=== PATIENT | female | born 1990 | race African-American/Black ===

== ENCOUNTER 2022-12-14 19:31 | Emergency (ER) | payer OTHER, SELFPAY ==
[2022-12-14 19:53] VITALS: BP 122/76; PULSE 91; RESP 16; TEMP 36.3; O2SAT 99; BMI 29.0
--- NOTE | 2022-12-14 19:59 | DI.US.S_ITS ---
PROCEDURE: US PELVIC COMPLETE INDICATIONS: PAIN; LOST IUD STRINGS TECHNIQUE: Real-time scanning was performed of the pelvic organs, with image documentation. Additional endovaginal scanning was necessary due to incomplete visualization of the adnexal and endometrial structures by transabdominal scanning. COMPARISON: None. FINDINGS: Uterus: Uterus is anteverted and measures 10.6 x 4.8 x 7.1 cm. The endometrium measures up to 0.4 cm in thickness. An IUD extends into the fundal endometrium. There is a mid posterior intramural fibroid measuring 1.5 x 1.2 x 1.6 cm. Ovaries: The right ovary measures 4.7 x 2.3 x 3.5 cm, with a calculated ovarian volume of 20 cc. The left ovary measures 2.2 x 3.7 x 1.7 cm, with a calculated ovarian volume of 7.2 cc. Less than 12 follicles can be seen in each ovary. No adnexal masses . There is an anechoic cyst within the right ovary measuring up to 2.3 cm. Other: No pathologic free abdominal or pelvic fluid. IMPRESSION: 1. IUD demonstrated in appropriate position extending into the fundal endometrium. 2. Small intramural fibroid demonstrated. We strive to produce accurate, complete, and clear reports of imaging services. To assist us in improving patient care, this report was composed using standard report templates and voice recognition software. Therefore, it may contain abnormal punctuation, insertions and/or omissions. Occasional wrong-word or sound-alike substitutions may occur. Though we review the report and make efforts to correct it, we do recommend that the report be read carefully in proper context to recognize any text inaccuracies. Dictated by: Ruslan Warner M.D. on 12/14/2022 at 21:50 Approved by: Ruslan Warner M.D. on 12/14/2022 at 21:53
--- NOTE | 2022-12-14 22:20 | ED.GENADULT ---
HPI - General Adult General Chief complaint: Urogenital-Female Stated complaint: Trying to get something removed? Time Seen by Provider: 12/14/22 20:32 Source: patient Mode of arrival: Ambulatory History of Present Illness HPI narrative: Patient is a 32-year-old female who 2 years ago had an IUD placed. Still has menstrual cycles. Her last menstrual cycle was just a couple weeks ago. She has had lower abdominal discomfort for the past couple days. She denies any urinary symptoms. No vaginal bleeding. States she could not feel the IUD strings. No vomiting. No chest pain. No shortness of breath. No fevers. Related Data Home Medications Medication Instructions Recorded Confirmed Zoloft 100 mg PO DAILY 12/14/22 12/14/22 Allergies Allergy/AdvReac Type Severity Reaction Status Date / Time adhesive Allergy Verified 12/14/22 19:52 Review of Systems Cardiovascular Cardiovascular: Reports system reviewed and no additional complaints, except as documented Respiratory Respiratory: Reports system reviewed and no additional complaints, except as documented Gastrointestinal Gastrointestinal: Reports system reviewed and no additional complaints, except as documented Genitourinary Genitourinary: Reports system reviewed and no additional complaints, except as documented Neurologic Neurologic: Reports system reviewed and no additional complaints, except as documented Hematologic/Lymphatic On Anticoagulants: No Patient History Social History Smoking Status: Never smoker Smoking Status: Never smoker alcohol intake frequency: a few times a week Substance Use Type: does not use Exam Initial Vital Signs Initial Vital Signs: Vital Signs Temperature 97.4 F L 12/14/22 19:53 Pulse Rate 91 H 12/14/22 19:53 Respiratory Rate 16 12/14/22 19:53 Blood Pressure 122/76 12/14/22 19:53 Pulse Oximetry 99 12/14/22 19:53 Oxygen Delivery Method Room Air 12/14/22 19:53 HENMT Head: normal to inspection and normocephalic Resp Effort & Inspection: normal respiratory effort Cardio Rate: regular rate GI Palpation: No firm and tender (Mildly tender lower abdomen) Neuro General: patient alert, patient awake and moves all extremities Course Orders Ordered: ED Orders 12/14/22 19:59 US pelvic complete Stat 12/14/22 22:27 CT abdomen pelvis w con Stat 12/14/22 22:45 Complete Blood Count AUTO DIFF Stat Comprehensive Metabolic Panel Stat Lipase Stat Test Serum,Qual Stat Vital Signs Vital signs: Vital Signs - 8 hr 12/14/22 19:53 12/14/22 22:49 Temperature 97.4 F L Pulse Rate 91 H 71 Respiratory Rate 16 16 Blood Pressure 122/76 137/82 Pulse Oximetry 99 100 Oxygen Delivery Method Room Air Room Air Medical Decision Making Lab Data Lab results reviewed: Yes I reviewed the patient's lab results. 12/14/22 22:45 12/14/22 22:45 Labs: Lab Results 12/14/22 12/14/22 12/14/22 Range/Units 22:45 22:45 22:45 WBC 5.3 (4.5-11.0) X10^3/uL RBC 4.62 (4.0-5.2) X10^6/uL Hgb 12.7 (12.0-16.0) g/dL Hct 36.8 (36-46) % MCV 79.6 L (80-100) fL MCH 27.5 (26-34) PG MCHC 34.6 (30-36) % RDW 13.1 (11.6-14.8) % Plt Count 292 (150-400) X10^3/uL Neut % (Auto) 43.7 L (50-75) % Lymph % (Auto) 40.5 H (25-40) % Barry % (Auto) 10.2 (3-14) % Eos % (Auto) 4.3 H (2-4) % Baso % (Auto) 1.3 (0-2) % Neut # (Auto) 2300 (8074-4703) /uL Lymph # (Auto) 2100 (1638-3309) /uL Barry # (Auto) 500 (0-900) /uL Eos # (Auto) 200 (0-450) /uL Baso # (Auto) 100 (0-100) /uL Sodium 137 (137-145) mmol/L Potassium 4.0 (3.4-5.1) mmol/L Chloride 102 (98-107) mmol/L Carbon Dioxide 29 (22-32) mmol/L BUN 14 (7-17) mg/dL Creatinine 0.90 (0.52-1.04) mg/dL Estimated GFR > 60 (>60) mL/min BUN/Creatinine Ratio 15.6 (6-22) Glucose 115 H (70-100) mg/dL Calcium 8.8 (8.4-10.2) mg/dL Total Bilirubin 0.4 (0.2-1.3) mg/dL AST 21 (14-36) IU/L ALT 21 (<35) IU/L Alkaline Phosphatase 60 (38-126) U/L Total Protein 7.8 (6.3-8.2) g/dL Albumin 4.1 (3.5-5.0) g/dL Globulin 3.7 (1.7-4.1) g/dL Albumin/Globulin Ratio 1.1 (1.0-2.8) Lipase 150 (23-300) U/L Serum , Qual Negative (Negative) Point of Care Testing Test Results Negative Urine Dip Bedside Urine Glucose Negative Bedside Urine Bilirubin - Negative Bedside Urine Ketone - Negative Urine Specific [place] 1.015 Bedside Urine Occult Blood - Negative Bedside Urine pH 6.5 Bedside Urine Protein - Negative Bedside Urine Urobilinogen - Negative Bedside Urine Nitrite - Negative Bedside Urine Leukocytes - Negative Esterase Point of care testing: Point of Care Testing Test Results Negative Urine Dip Bedside Urine Glucose Negative Bedside Urine Bilirubin - Negative Bedside Urine Ketone - Negative Urine Specific [place] 1.015 Bedside Urine Occult Blood - Negative Bedside Urine pH 6.5 Bedside Urine Protein - Negative Bedside Urine Urobilinogen - Negative Bedside Urine Nitrite - Negative Bedside Urine Leukocytes - Negative Esterase Imaging Data US - DISPATCHER CLERK: Radiologist's Impression: PROCEDURE:? US PELVIC COMPLETE ? INDICATIONS:? PAIN; LOST IUD STRINGS ? TECHNIQUE:? Real-time scanning was performed of the pelvic organs, with image documentation.? Additional endovaginal scanning was necessary due to incomplete visualization of the adnexal and endometrial structures by transabdominal scanning.? ? COMPARISON:? None. ? FINDINGS:? ?? Uterus:? Uterus is anteverted and measures 10.6 x 4.8 x 7.1 cm.? The endometrium measures up to 0.4 cm in thickness.? An IUD extends into the fundal endometrium.? There is a mid posterior intramural fibroid measuring 1.5 x 1.2 x 1.6 cm. ? Ovaries:? The right ovary measures 4.7 x 2.3 x 3.5 cm, with a calculated ovarian volume of 20 cc. The left ovary measures 2.2 x 3.7 x 1.7 cm, with a calculated ovarian volume of 7.2 cc. Less than 12 follicles can be seen in each ovary.? No adnexal masses .? There is an anechoic cyst within the right ovary measuring up to 2.3 cm. ? Other:? No pathologic free abdominal or pelvic fluid. ? ? IMPRESSION:? ? 1. IUD demonstrated in appropriate position extending into the fundal endometrium.? ? 2. Small intramural fibroid demonstrated. CT scan - abdomen/pelvis: Radiologist's Impression: PROCEDURE:? CT ABDOMEN PELVIS W CON ? INDICATIONS:? Bilateral lower abdominal pain ? TECHNIQUE:? After the administration of IV contrast, axial sections were acquired from the lung bases to the pubic symphysis.? Coronal and sagittal reformats were performed.? For radiation dose reduction, the following was used:? automated exposure control, adjustment of mA and/or kV according to patient size. ? COMPARISON:? [facility], , PELVIC COMPLETE, 12/14/2022, 20:44. ? FINDINGS:? Image quality:? Excellent.? ? Lung bases:? Unremarkable.? ? Heart:? Heart is normal in size. ? ? ABDOMEN: Liver:? No mass lesion. Gallbladder:? Within normal limits without calcified gallstones.? ? Biliary ducts:? No biliary ductal dilatation.? ? Pancreas:? Unremarkable.? ? Spleen:? Normal in size.? ? Adrenal Glands:? No adrenal nodules.? ? Kidneys and Ureters:? No hydronephrosis.? ? ? Stomach and Bowel:? Stomach, small bowel loops, and colon are normal in caliber and wall thickness.? The appendix is at the upper limits of normal, measuring up to 0.7 cm.? No definite associated periappendiceal fat stranding or fluid. Peritoneum:? A small amount of free fluid in the pelvis appears within physiologic limits.? No free air.? ? Ventral Wall: ? No hernia.? Abdominal Nodes:? No retroperitoneal or mesenteric adenopathy by size criteria.? Vessels:? Aorta and inferior vena cava are normal in size.? ? PELVIS: Pelvic Organs:? An IUD appears to extend into the fundal endometrium the.? ? Bladder:? Unremarkable.? ? Pelvic Nodes: No enlarged lymph nodes.? Miscellaneous: No inguinal hernias are seen. ? ? ? Bones:? Visualized osseous structures demonstrate no suspicious focal lesions. ? IMPRESSION:? ? 1. No definite evidence of appendicitis. ? 2. Small amount of pelvic free fluid appears within physiologic limit MDM Narrative Medical decision making narrative: Has a benign exam. Ultrasound does show the IUD in place. Initially recommended to the patient that we hold on any CT scan for now as I had low suspicion for other acute intra-abdominal surgical issues however the patient stated that she wanted to make sure that there was nothing wrong so she asked for CT scan. The subsequent CT scan is unremarkable. No fevers. No further workup required here in the emergency department. Patient understands the lack of definitive diagnosis here in the ER. She was given return precautions. She expressed understanding and agreement. Discharge Plan Departure Patient Disposition: Home Clinical Impression: Abdominal pain Instructions: DI for Abdominal Pain-Adult Activity Restrictions/Additional Instructions: Recommend that you contact your primary doctor for follow-up. Continue to take any medications as directed. Return to the emergency department for new or worsening symptoms. Prescriptions: No Action Zoloft 100 mg 100 mg PO DAILY Referrals: [facility] [Primary Care Provider] - Stand Alone Forms: Patient Portal/API
--- NOTE | 2022-12-14 22:27 | DI.CT.S_ITS ---
PROCEDURE: CT ABDOMEN PELVIS W CON INDICATIONS: Bilateral lower abdominal pain TECHNIQUE: After the administration of IV contrast, axial sections were acquired from the lung bases to the pubic symphysis. Coronal and sagittal reformats were performed. For radiation dose reduction, the following was used: automated exposure control, adjustment of mA and/or kV according to patient size. COMPARISON: [facility], , PELVIC COMPLETE, 12/14/2022, 20:44. FINDINGS: Image quality: Excellent. Lung bases: Unremarkable. Heart: Heart is normal in size. ABDOMEN: Liver: No mass lesion. Gallbladder: Within normal limits without calcified gallstones. Biliary ducts: No biliary ductal dilatation. Pancreas: Unremarkable. Spleen: Normal in size. Adrenal Glands: No adrenal nodules. Kidneys and Ureters: No hydronephrosis. Stomach and Bowel: Stomach, small bowel loops, and colon are normal in caliber and wall thickness. The appendix is at the upper limits of normal, measuring up to 0.7 cm. No definite associated periappendiceal fat stranding or fluid. Peritoneum: A small amount of free fluid in the pelvis appears within physiologic limits. No free air. Ventral Wall: No hernia. Abdominal Nodes: No retroperitoneal or mesenteric adenopathy by size criteria. Vessels: Aorta and inferior vena cava are normal in size. PELVIS: Pelvic Organs: An IUD appears to extend into the fundal endometrium the. Bladder: Unremarkable. Pelvic Nodes: No enlarged lymph nodes. Miscellaneous: No inguinal hernias are seen. Bones: Visualized osseous structures demonstrate no suspicious focal lesions. IMPRESSION: 1. No definite evidence of appendicitis. 2. Small amount of pelvic free fluid appears within physiologic limits. Dictated by: Ruslan Warner M.D. on 12/15/2022 at 0:47 Approved by: Ruslan Warner M.D. on 12/15/2022 at 0:51
[2022-12-14 22:49] VITALS: BP 137/82; PULSE 71; RESP 16; O2SAT 100
[2022-12-14 22:58] LABS: Add Manual Diff / Slide Review NO; Basophils Absolute Auto 100 /uL (0-100); Basophils Percent Auto 1.3 % (0-2); Eosinophils Absolute Auto 200 /uL (0-450); Eosinophils Percent Auto 4.3 % (2-4); Hematocrit 36.8 % (36-46); Hemoglobin 12.7 g/dL (12.0-16.0); Lymphocytes Absolute Auto 2100 /uL (1100-4500); Lymphocytes Percent Auto 40.5 % (25-40); Mean Corpuscular HGB Conc 34.6 % (30-36); Mean Corpuscular Hemoglobin 27.5 PG (26-34); Mean Corpuscular Volume 79.6 fL (80-100); Monocytes Absolute Auto 500 /uL (0-900); Monocytes Percent Auto 10.2 % (3-14); Neutrophils Absolute Auto 2300 /uL (1500-7000); Neutrophils Percent Auto 43.7 % (50-75); Platelet Count 292 X10^3/uL (150-400); Red Blood Cell Count 4.62 X10^6/uL (4.0-5.2); Red Cell Distribution Width 13.1 % (11.6-14.8); White Blood Cell Count 5.3 X10^3/uL (4.5-11.0)
[2022-12-14 23:09] LABS: Alanine Aminotransferase 21 IU/L (<35); Albumin 4.1 g/dL (3.5-5.0); Albumin Globulin Ratio 1.1 (1.0-2.8); Alkaline Phosphatase 60 U/L (38-126); Aspartate Aminotransferase 21 IU/L (14-36); BUN Creatinine Ratio 15.6 (6-22); Bilirubin Total 0.4 mg/dL (0.2-1.3); Blood Urea Nitrogen 14 mg/dL (7-17); Calcium 8.8 mg/dL (8.4-10.2); Carbon Dioxide 29 mmol/L (22-32); Chloride 102 mmol/L (98-107); Estimated Glomerular Filt Rate > 60 mL/min (>60); Globulin 3.7 g/dL (1.7-4.1); Glucose 115 mg/dL (70-100); HEMOLYSIS < 15 (0-50); Lipase 150 U/L (23-300); Sodium 137 mmol/L (137-145); Total Protein 7.8 g/dL (6.3-8.2)
[2022-12-14 23:19] LABS: Pregnancy Test Serum,Qual Negative (Negative)
[2022-12-15 01:22] VITALS: BP 134/79; PULSE 83; RESP 17; O2SAT 100
== END 2022-12-15 01:23 | disposition home or self-care (01) ==
PROVIDERS: Emergency Provider Emergency Medicine
DX: R10.30 Lower abdominal pain, unspecified (principal); Z97.5 Presence of (intrauterine) contraceptive device
CPT/HCPCS: 36415; 74177; 76830; 76856; 80053; 81003; 81025; 83690; 84703; 85025; 99283; 99284; Q9967